=== PATIENT | female | born 1970 | race Caucasian/White ===

== ENCOUNTER 2022-05-17 00:29 | Emergency (ER) | payer OTHER, SELFPAY ==
[2022-05-17 00:40] VITALS: BP 114/78; BP 118/80; PULSE 78; PULSE 82; RESP 16; TEMP 36.2; O2SAT 99; BMI 31.1
--- NOTE | 2022-05-17 01:19 | ED_ITS ---
HPI - General Adult General Chief complaint: General Medical Stated complaint: LOWER ABDOMINAL PAIN, SKIN INFECTION? BUG BITE? Time Seen by Provider: 05/17/22 00:42 Source: patient Mode of arrival: ambulatory Limitations: no limitations History of Present Illness HPI narrative: 52-year-old female who presents emergency department for evaluation of cellulitis to The skin of her left lower abdomen. The patient states that approximately 10 days prior she does small bump in the left lower part of her abdomen. She states that about 7 days prior the area became pruritic and she itch the area. She states that shortly after that she developed a larger bump and redness. She states that the larger bump drained pus . She states that the redness has been spreading. She states that the pain is a constant, burning like pain which is 8/10 at its worst. She had subjective fever and chills at home. She states that she has had nausea with no vomiting. She has felt fatigued and had 1 episode of diarrhea yesterday. MD complaint: Cellulitis to abdominal wall Onset (ago): day(s) (7) Location: abdomen ( left lower quadrant) Radiation: non-radiation Severity: severe Severity scale (1-10): 8 Quality: burning Pain Consistency: constant Relieving factors: none Exacerbating factors: none Associated symptoms: fever/chills, nausea/vomiting and other ( diarrhea) Treatments prior to arrival: none Related Data Previous Rx's Medication Instructions Recorded cephalexin 500 mg capsule 500 mg PO QID 7 days #28 caps 05/17/22 doxycycline hyclate 100 mg tablet 100 mg PO Q12H 7 days #14 tabs 05/17/22 morphine 15 mg immediate release 15 mg PO Q4-6H PRN pain #14 tabs 05/17/22 tablet Allergies Allergy/AdvReac Type Severity Reaction Status Date / Time latex [LATEX] Allergy Unknown UNKNOWN Unverified 08/11/20 16:59 oxycodone [OXYCODONE] Allergy Unknown UNKNOWN Unverified 08/11/20 16:59 Review of Systems Review of Systems: Yes all other systems are reviewed and are negative [facility] Past Medical History [facility] Narrative: past medical history: Hypertension, migraines, chronic pain syndrome. Past surgical history: None. Social history: The patient smokes 1/3 pack of cigarettes per day times 17 years. She occasionally drinks alcohol. She smokes Social History Social History Advance Directives: No Advance Directives Information Provided: Yes Physical Exam ED Vital Signs: Vital Signs - 24 hr 05/17/22 00:40 05/17/22 02:40 05/17/22 03:09 Temperature 97.2 F Pulse Rate 78 58 Respiratory Rate 16 16 16 Blood Pressure 114/78 107/68 Pulse Oximetry 99 96 Oxygen Delivery Method Room Air Room Air BMI result Body Mass Index 31.1 Const General: cooperative and no acute distress Orientation/consciousness: oriented to person and oriented to place Limitations: no limitations HENMT Head: Yes normal to inspection, Yes normocephalic and Yes atraumatic Ears: external ears normal General nose exam: Normal external nose present Face and sinus: Yes normal facial exam Mouth: Normal oral and palatal mucosa present Throat: Yes posterior oropharynx normal Eyes General: appearance normal, both eyes and all related structures Pupils: Equal, round and reactive pupils present Neck Neck: Yes normal visual inspection, Yes no lymphadenopathy, Yes trachea midline and Yes supple Chest Chest palpation & inspection: normal inspection of the chest and normal palpation of entire chest wall Resp Effort & Inspection: normal respiratory effort and able to speak in complete sentences Auscultation: clear to auscultation bilaterally Cardio Rate: regular rate Rhythm: regular rhythm Heart sounds: S1 normal heart sound present, S2 normal heart sound present and no murmurs GI Other: the patient has an area flocculence with an unroofed abscess that is not currently draining purulent material. The patient has 10 x 5 cm area of surrounding erythema which is warm to the touch and blanches to pressure, this area is very tender to palpation. Inspection: Yes normal to inspection Palpation (GI): Soft to palpation, Tenderness to palpation present (GI) ( Moderate left lower quadrant) and no guarding Auscultation: normal bowel sounds General: Yes no CVA tenderness Back/Spine/Pelvis Back: no CVA tenderness Skin General skin exam: no rashes or lesions noted Neuro General: oriented to person and oriented to place Cranial nerves: Yes CN's II-XII intact bilaterally and Yes Equal, round and reactive pupils present Cognition (Neuro): normal cognition Motor exam (neuro): 5/5 motor strength present throughout Extrem General: Yes normal to inspection Psych Appearance: grossly normal Speech and movement: Normal speech and movement present Affect: normal affect Attitude: cooperative Thought process: Normal thought process present Thought content: Normal thought content present Course Course Course Narrative: 52-year-old female who presents emergency department for evaluation of cellulitis to her left lower quadrant area of her abdomen, the patient most likely had an abscess which has drained and now there is an area cellulitis surrounding this abscess. The abscess is unroofed and indurated and does not need to be drained at this point. I did order laboratory evaluation includes CBC, CMP, lactic acid, blood cultures x2. . Patient's pain was treated with morphine 4 mg IV and Zofran 4 mg IV. She was also given normal saline 1 L IV. Patient's infection will be treated with Ancef 2 g IV. 0511: The patient's laboratory evaluation was unremarkable. The patient did get some relief with the above morphine but her pain has come back therefore she was given 2nd dose of morphine 4 mg IV. The patient will be started on doxycycline 100 mg twice a day for 7 days and Keflex 500 mg 4 times a day for 7 days. She was advised to take Tylenol and ibuprofen for pain. For pain not relieved by these medications she was prescribed morphine. Medical Decision Making Lab Data Result diagrams: 05/17/22 02:09 05/17/22 02:09 Labs: Lab Results 05/17/22 05/17/22 05/17/22 Range/Units 02:09 02:09 02:09 WBC 7.4 (4.8-10.8) X10*3/uL RBC 4.23 (4.20-5.50) X10*6/uL Hgb 12.7 (12.0-16.0) g/dl Hct 37.7 (37.0-47.0) % MCV 89.1 (80.0-98.0) fL MCH 30.0 (27.0-33.0) pg MCHC 33.7 (31.0-35.0) g/dl RDW 13.6 (11.0-16.0) % Plt Count 212 (160-400) X10*3/uL MPV 12.0 (9.4-12.3) fL Immature Gran % (Auto) 0.4 (0.0-0.4) % Neut % (Auto) 59.5 (45-73) % Lymph % (Auto) 28.2 (20-40) % [place] % (Auto) 8.3 (2-11) % Eos % (Auto) 3.1 (0-4) % Baso % (Auto) 0.5 (0-2) % Lymph # (Auto) 2.1 (1.2-4.9) X10*3/uL [place] # (Auto) 0.6 (0.1-1.2) X10*3/uL Eos # (Auto) 0.2 (0.0-0.4) X10*3/uL Baso # (Auto) 0.0 (0.0-0.2) X10*3/uL Abs Immat Gran (auto) 0.03 (0.00-0.03) X10*3/uL Absolute Neuts (auto) 4.4 (2.0-8.3) x10*3/uL Absolute Nucleated RBC 0.000 (0.0-0.012) X10*3/uL Nucleated RBC % (auto) 0.0 (0.0-0.2) /100WBC Sodium 137 (135-145) mmol/L Potassium 4.0 (3.3-5.1) mmol/L Chloride 107 (96-108) mmol/L Carbon Dioxide 22 (22-29) mmol/L Anion Gap 12 (12-20) BUN 14 (9-16) mg/dL Creatinine 0.79 (0.5-1.4) mg/dL Estim Creat Clear Calc 81.9 Estimated GFR > 60 Random Glucose 90 (60-115) mg/dL Lactic Acid 0.7 (0.5-2.0) mmol/L Calcium 9.6 (8.4-10.2) mg/dL Total Bilirubin 0.2 (0.0-1.0) mg/dL AST 14 (5-31) U/L ALT 14 (0-31) U/L Alkaline Phosphatase 59 (39-117) U/L Total Protein 6.3 L (6.5-8.0) g/dL Albumin 4.1 (3.5-5.0) g/dL Discharge Plan Discharge Clinical Impression: Abdominal wall cellulitis Patient Disposition: Home, Self-Care Additional Instructions: Cellulitis Discharge Instructions You have an infection of your skin. This is called cellulitis. This is usually caused by bacteria on your skin that gets under your skin and then causes the infection Take Keflex 500 mg pills, 1 pill 4 times a day for 1 week. also take doxycycline 100 mg pills, 1 pill every 12 hours for 1 week. This is an antibiotic that should help your body fight off the infection. Apply a heating pad on low or a warm compress for 15 minutes, 4-6 times a day. This will increase the blood flow to the area and will bring white blood cells to the area which will help your body fight off the infection. Take ibuprofen 200 mg pills, 3 pills every 6 hours as needed for pain. Take Tylenol (acetaminophen) 500 mg pills, 2 pills every 6hours as needed for pain. For pain not relieved by ibuprofen or Tylenol take morphine 15 mg pills, 1 pill every 4 hours as needed for pain. This medication will make you sleepy, do not drive or work while taking this medication. Morphine is a narcotic medication and can be addicting. If you are concerned about addiction you can ask the pharmacist for less pills or do not get this prescription filled. If we joseph a line around the area of cellulitis, the redness should withdraw from the line in the next 1-3 days. If the redness crosses the line this is a sign that the infection is getting worse and you should see your doctor or return to the Emergency Department for a recheck. Other signs of worsening infection include fever, chills, weakness, increased pain, increased redness, increased swelling or red streaks going away from the area of infection. If you develop any of these symptoms or any other symptoms that are concerning to you, see your doctor immediately or return to the Emergency Department. Follow up with your doctor in 3 days for a recheck Please read the other printed instructions that we printed for you. Prescriptions: New cephalexin 500 mg capsule 500 mg PO QID 7 Days Qty: 28 0RF morphine 15 mg tablet 15 mg PO Q4-6H PRN (Reason: pain) Qty: 14 0RF Rx Instructions: Patient may request partial fill; Partial Fill upon patient request. doxycycline hyclate 100 mg tablet 100 mg PO Q12H 7 Days Qty: 14 0RF
[2022-05-17 02:14] LABS: MANUAL DIFF FLAG NO
[2022-05-17 02:15] LABS: Basophils Percent Auto 0.5 % (0-2); Eosinophils Absolute Auto 0.2 X10*3/uL (0.0-0.4); Eosinophils Percent Auto 3.1 % (0-4); Hematocrit 37.7 % (37.0-47.0); Hemoglobin 12.7 g/dl (12.0-16.0); Imm Gran Abs Auto 0.03 X10*3/uL (0.00-0.03); Imm Gran Pct Auto 0.4 % (0.0-0.4); Lymphocytes Absolute Auto 2.1 X10*3/uL (1.2-4.9); Lymphocytes Percent Auto 28.2 % (20-40); Mean Corpuscular HGB Conc 33.7 g/dl (31.0-35.0); Mean Corpuscular Volume 89.1 fL (80.0-98.0); Monocytes Absolute Auto 0.6 X10*3/uL (0.1-1.2); Monocytes Percent Auto 8.3 % (2-11); Neutrophils Absolute Auto 4.4 x10*3/uL (2.0-8.3); Neutrophils Percent Auto 59.5 % (45-73); Platelet Count 212 X10*3/uL (160-400); Red Blood Count 4.23 X10*6/uL (4.20-5.50); Red Cell Distribution Width 13.6 % (11.0-16.0); White Blood Count 7.4 X10*3/uL (4.8-10.8)
[2022-05-17 02:28] LABS: Lactic Acid 0.7 mmol/L (0.5-2.0)
[2022-05-17 02:36] LABS: Alanine Aminotransferase 14 U/L (0-31); Albumin Level 4.1 g/dL (3.5-5.0); Alkaline Phosphatase 59 U/L (39-117); Anion Gap 12 (12-20); Aspartate Amino Transferase 14 U/L (5-31); Bilirubin Total 0.2 mg/dL (0.0-1.0); Blood Urea Nitrogen 14 mg/dL (9-16); Calcium 9.6 mg/dL (8.4-10.2); Carbon Dioxide 22 mmol/L (22-29); Chloride 107 mmol/L (96-108); Creatinine Clr Calc Pharmacy 81.9; Estimated Glomerular Filt Rate > 60; Glucose Random 90 mg/dL (60-115); Sodium 137 mmol/L (135-145); Total Protein 6.3 g/dL (6.5-8.0)
[2022-05-17 02:40] VITALS: RESP 16
[2022-05-17] MEDS: Morphine Sulfate 4 MG/ML CARTRIDGE IVPUSH ×2 (02:40→05:23)
[2022-05-17] MEDS: ondansetron HCL 4 MG/2 ML VIAL IVPUSH (02:40)
[2022-05-17] MEDS: 0.9 % Sodium Chloride 1,000 ML 999 ML IV (02:43)
[2022-05-17 03:09] VITALS: BP 107/68; PULSE 58; RESP 16; O2SAT 96
[2022-05-17 05:23] VITALS: RESP 16
[2022-05-17] MEDS: Bacitracin Oint 0.9 GM PACKET 1 APPL TOPICAL (05:23)
== END 2022-05-17 07:10 | disposition home or self-care (01) ==
PROVIDERS: Emergency Provider Emergency Medicine Emergency Medical Services; PCP Internal Medicine
DX: L03.311 Cellulitis of abdominal wall (principal); I10 Essential (primary) hypertension
CPT/HCPCS: 36415; 80053; 83605; 85025; 87040; 96365; 96375; 96376; 99284; J0690; J2270; J2405

== ENCOUNTER 2022-12-28 00:17 | Emergency (ER) | payer OTHER, SELFPAY ==
[2022-12-28 00:26] VITALS: BP 135/78; PULSE 92; RESP 20; TEMP 36.1; O2SAT 98; BMI 31.1
--- NOTE | 2022-12-28 03:25 | ED.GENADULT ---
HPI - General Adult General Chief complaint: Skin/Abscess/Foreign Body Stated complaint: Swallowed plastic/ pain in throat Time Seen by Provider: 12/28/22 02:49 Source: patient Mode of arrival: ambulatory History of Present Illness HPI narrative: 52-year-old female swallowed a little piece of plastic earlier at approximately 18:00 and still feels like there is something there though she a has been able to eat and drink without difficulty. Related Data Previous Rx's Medication Instructions Recorded cephalexin 500 mg capsule 500 mg PO QID 7 days #28 caps 05/17/22 doxycycline hyclate 100 mg tablet 100 mg PO Q12H 7 days #14 tabs 05/17/22 morphine 15 mg immediate release 15 mg PO Q4-6H PRN pain #14 tabs 05/17/22 tablet Allergies Allergy/AdvReac Type Severity Reaction Status Date / Time acetaminophen [From PERCOCET] Allergy Intermediate DIZZINESS Verified 12/28/22 00:30 latex [LATEX] Allergy Unknown UNKNOWN Verified 12/28/22 00:30 oxycodone [OXYCODONE] Allergy Unknown UNKNOWN Verified 12/28/22 00:30 Review of Systems Review of Systems: Pertinent positives and negatives as stated in HPI [facility] Past Medical History Source: nursing notes reviewed Social History Social History Advance Directives: No Advance Directives Information Provided: Yes Physical Exam ED Vital Signs: Vital Signs - 24 hr 12/28/22 00:26 Temperature 96.9 F Pulse Rate 92 Respiratory Rate 20 Blood Pressure 135/78 Pulse Oximetry 98 Oxygen Delivery Method Room Air BMI result Body Mass Index 31.1 VITAL SIGNS: Reviewed. GENERAL: Well developed, well nourished, in no acute distress. HEAD: Normocephalic/atraumatic EYES: PERRLA, EOMI LUNGS: No stridor, no tachypnea, Normal breath sounds. SpO2<98> CARDIOVASCULAR: Regular rate and rhythm without noted murmurs ABDOMEN: Soft, non-tender, non-distended with bowel sounds. MUSCULOSKELETAL: No tenderness, deformities, or effusions noted on gross inspection. EXTREMITIES: No cyanosis, clubbing or edema. SKIN: Inspection of the skin reveals no rashes NEUROLOGIC: Alert and oriented x 4. Strength and sensation to light touch were grossly intact x 4. Medical Decision Making Medical Decision Making MDM Narrative: 52-year-old female is present with complaints of feeling like there is something in her throat after she thinks that she may have accidentally swallowed a small piece of plastic. That has not prevented her from a tolerating liquid and solid since that time. There is no evidence of any airway obstruction. Patient received a GI cocktail will be discharged home with a referral to follow-up with ENT in the morning. Differential Diagnosis Differential Diagnoses: The differential diagnosis associated with the presentation includes Please see the discussion above Discharge Plan Discharge Clinical Impression: Foreign body sensation in throat Patient Disposition: Home, Self-Care Instructions: Esophageal Foreign Body (ED) Additional Instructions: 1. You have been provided with a referral to follow-up with the ENT in the morning by calling the office should your symptoms persist. Return to the ER for any worsening symptoms. Prescriptions: No Action cephalexin 500 mg capsule 500 mg PO QID 7 Days Qty: 28 0RF morphine 15 mg tablet 15 mg PO Q4-6H PRN (Reason: pain) Qty: 14 0RF Rx Instructions: Patient may request partial fill; Partial Fill upon patient request. doxycycline hyclate 100 mg tablet 100 mg PO Q12H 7 Days Qty: 14 0RF Referrals: Madelyn Mckeon NP [Primary Care Provider] - Quentin Melendez [Physician] -
[2022-12-28] MEDS: Lidocaine HCl Viscous 2 % 15 ML SOLUTION 10 ML MUCOUS MEM (03:50)
[2022-12-28] MEDS: Magnesium Hydrox/Alum Hydrox 30 ML ORAL.SUSP PO (03:50)
== END 2022-12-28 03:54 | disposition home or self-care (01) ==
PROVIDERS: Emergency Provider Student in an Organized Health Care Education/Training Program; PCP Registered Nurse
DX: R09.89 Other specified symptoms and signs involving the circulatory and respiratory systems (principal); Z79.899 Other long term (current) drug therapy
CPT/HCPCS: 99282; 99283